=== PATIENT | male | born 1940 | race Caucasian/White ===

== ENCOUNTER → 2021-12-20 | Outpatient (CLI) | payer MEDICARE, OTHER ==
[~2021-12-20] MED LIST: CAND16TA2 PO; CENTTAB16 PO; LOVA40TA PO; METO1TAB7 PO; POTA4.25 PO; TADA5TAB PO; VITATAB73 PO
== END ==
LOC: M LABSMTC 11:26
PROVIDERS: ATTEND Anesthesiology
DX: Z01.812 Encounter for preprocedural laboratory examination (principal); Z20.822 Contact with and (suspected) exposure to COVID-19